=== PATIENT | female | born 1945 | race Caucasian/White ===

== ENCOUNTER 2017-02-28 20:29 | Emergency (ER) | payer OTHER ==
--- NOTE | 2017-02-28 22:33 | ED CLINICAL REPORT ---
Clinical Report - Physicians/Mid Levels [facility] [address] [place] [address] 02/28/2017 20:30 Patient: SHAYNE LOOMIS Time Seen: 21:04 Feb 28 2017. Arrived- By private vehicle. Historian- patient and family. HISTORY OF PRESENT ILLNESS Chief Complaint: BACK PAIN. The quality is noted to be "pain" and similar to prior episodes. It is described as being in the area of the lower thoracic spine. Onset was yesterday and it is still present. No bladder dysfunction, bowel dysfunction or sensory loss. Additional history - Low back pain with movement, especially movement from sitting to standing. Improves with rest, and ambulation. Took two vicodin prior to arrival, with improvement of sx. Patient denies any saddle anesthesia, urinary incontinence. Denies any urgency or frequency. Denies any fevers. Denies radiation of pain. Reports similar history of pain, with chronic low back pain, likely exacerbated, as patient is recently cleaning and moving. REVIEW OF SYSTEMS No fever, chills, cough, difficulty breathing or nausea. All systems otherwise negative, except as recorded above. PAST HISTORY The patient has had prior back pain. Problems: Chrinic back pain with herniated disc. Anxiety Reaction. GERD. Depression. Additional Surgeries: Cataract Surgery. Medications: vicodin 2 tabs prn at 1800. Thyroid Hormone 60mcg , daily. Alprazolam 1 mg, 4x a day (1 tab every 4 hours PRN). Gabapentin Oral (Capsule 300 mg) 1 capsule. Vicodin Oral 7.5 mg, as needed. Allergies: NKDA. SOCIAL HISTORY Former smoker. Alcohol use. History of drug use. ADDITIONAL NOTES The nursing notes have been reviewed. PHYSICAL EXAM Vital Signs: 02/28/2017 20:35 BP: 132/58. HR: 77. RR: 18. O2 saturation: 92%. Temp: 98.3 F. Appearance: Alert. Eyes: Pupils equal, round and reactive to light. ENT: Ears normal. Neck: Normal inspection. Neck nontender. CVS: Normal heart rate and rhythm. Heart sounds normal. Respiratory: No respiratory distress. Breath sounds normal. No chest wall injury. Abdomen: Normal inspection. Soft. Bowel sounds normal. Back: Vertebral point tenderness over the lower lumbar spine. Soft tissue tenderness. Skin: Skin warm. Normal skin color. Neuro: Oriented X 3. Mood/affect normal. No weakness. No sensory deficit. PROGRESS AND PROCEDURES Course of Care: There are no risks for spinal epidural abscess or hematoma as patient is without any risk factors such as IVDA or evidence of active infection, no midline tenderness to percussion. Hence I do not feel emergent imaging with an MRI is indicated. However I did discuss with the patient that if these symptoms develop, or if the pain does not resolve an MRI may need to be done outpatient, or in the ED if symptoms worsen acutely or new onset of the above mentioned symptoms develop. NO distress. Pain reproduced with movement, in addition pt with signs of cystitis. Afebrile. NO cva tenderness. Patient with reproducible pain upon attempting to move from sitting to standing. Patient of this time with no history of IV drug use. Advanced age, with good distal sensation, as well as reflexes, history of chronic lumbar pain. No suspicion for any other acute processes beyond cystitis as treatment initiated. 02/28/2017 20:35 BP: 132/58. HR: 77. RR: 18. O2 saturation: 92%. Temp: 98.3 F. Patient is stable. Symptoms better. Patient/family counseled. Disposition: Discharged. CLINICAL IMPRESSION Chronic lumbar back pain. Cystitis. INSTRUCTIONS (you have signs of an infection, bladder infection ice your back take vicodin may take flexeril for further take pro-biotic). Your Current Medications: CONTINUE TAKING THE FOLLOWING MEDICATIONS: Alprazolam : 1 mg 4x a day, 1 tab every 4 hours PRN. Gabapentin Oral : Capsule 300 mg, 1 capsule. Thyroid Hormone* : 60mcg daily. vicodin 2 tabs prn at 1800*. Vicodin Oral : 7.5 mg, prn. Prescription Medications: Flexeril 10 mg: take 1 orally every 8 hours for 3 days. Dispense ten (10). No refills. Macrobid 100 mg: take 1 capsule orally every 12 hours for 7 days. No refill. Substitution is permissible. Follow-up: Follow up with your doctor Saturday. (Electronically signed by Sweta Delaney P.A.-C 02/28/2017 22:36)
--- NOTE | 2017-02-28 22:33 | ED ORDER SUMMARY ---
..... Patient: SHAYNE LOOMIS OrderSheet [facility] VisitID: [id number] [place] [address] 72y, F Registration Date/Time: 02/28/2017 ORDER SHEET Weight: 72.5 kg (estimated) Allergies: NKDA GENERAL ORDERS: UA-Culture if indicated Urgent (20:58 02/28/2017 EKoroleva P.A.-C) (Ack 21:06 Geovani) (21:58 Jory R.N.) MEDICATION ORDERS: Macrobid PO 100 mg (NOW) (21:58 02/28/2017 EKoroleva P.A.-C) (22:23 La Ortiz.Damion.) Flexeril PO 10 mg (NOW) (21:58 02/28/2017 EKoroleva P.A.-C) (Cancelled: Other22:09 EKoroleva P.A.-C) IV FLUIDS: ORDER SHEET NOTES: [Electronically signed by Sweta Delaney P.A.-C (22:36 02/28/2017)] [Electronically signed by Merissa Davis R.N. (22:48 02/28/2017)] [Electronically locked/signed by Merissa Davis R.N. (22:48 02/28/2017)]
--- NOTE | 2017-02-28 22:33 | ED NURSING NOTES ---
Clinical Report - Nurses [facility] [address] [place] [address] 02/28/2017 20:30 Patient: SHAYNE LOOMIS TRIAGE Triage time 2034. Acuity: LEVEL 4. Chief Complaint: BACK PAIN. --20:54 Leonora Grace R.N. 20:35 02/28/17. BP: 132/58. HR: 77. RR: 18. O2 saturation: 92% on room air. Temp: 98.3 F. --20:54 Leonora Grace R.N. Weight: 72.5 kg estimated. Height/Length: 63 inches Per Patient. BMI: 28.3. --20:51 Leonora Grace R.N. Medications Alprazolam 1 mg, 4x a day (1 tab every 4 hours PRN). Gabapentin Oral (Capsule 300 mg) 1 capsule. Vicodin Oral 7.5 mg, as needed. --20:50 Leoonra Grace R.N. Thyroid Hormone 60mcg , daily. --20:50 Leonora Grace R.N. vicodin 2 tabs prn at 1800. --20:51 Leonora Grace R.N. Allergies NKDA. --20:45 Leonora Grace R.N. History Arrived by private vehicle. Historian: patient. Accompanied by son. Primary physician (mike). This started yesterday. Onset. (gotton gradiually worse all day). No history of recent trauma. History of recent trauma- (possibly lifted something). ( has chronic back pain). SOCIAL HX: Former smoker (quit 30+ years ago, smoked for 3 years). Occasional alcohol use. History of drug use: marijuana. (per dr cadet). --20:54 Leonora Grace R.N. PROBLEMS: Chrinic back pain with herniated disc. Anxiety Reaction. GERD. Depression. --20:46 Leonora Grace R.N. ADDITIONAL SURGERIES: Cataract Surgery. --20:46 Leonora Grace R.N. Interventions ID band on patient. To treatment room. --20:54 Leonora Grace R.N. PHYSICAL ASSESSMENT 20:35. To room via wheelchair. Patient not gowned. GENERAL / NEURO / PSYCH: Alert. Oriented X 4. Appears in pain. ( PT SOMEWHAT GORGGY, SLOW TO RESPOND). RESPIRATORY: Chest nontender. CVS: Capillary refill less than 2 seconds. GI / : Abdomen soft. --20:56 Leonora Grace R.N. NURSING PROGRESS NOTES 20:35. Patient gowned. Head of bed elevated. Reassurance given. Patient identifiers checked. Call light placed in reach. Side rails up. Bed placed in lowest position. Patient ready for evaluation- chart flagged and notification provided. --20:55 Leonora Grace R.N. 21:45 Pt ambulated to bathroom with escort. stable but slow on feet. UA obtained and sent to lab. --21:58 Leonora Grace R.N. 22:05 02/28/17. Care transferred and report given (Merissa Fry, EDRN). --22:05 Leonora Grace R.N. 22:23 02/28/2017 Macrobid PO Capsules 100 mg given. Allergies verified and confirmed 5 rights. --22:23 Merissa Davis R.N. DISPOSITION / DISCHARGE Departure time: 2245. Condition at departure: improved and stable. No learning barriers present. Discharge instructions provided and reviewed with the patient. Reviewed medication(s) side effects, precautions, dosing and course information. Prescription(s) given to the patient. Patient verbalized understanding. Written instructions provided in [place]. The patient was discharged home and accompanied by neuroscientist. She left the Emergency Department ambulatory and via private vehicle. Family member driving. --22:48 Merissa Davis R.N. 22:30 02/28/17. BP: 103/63. HR: 63 (regular and normal rate). RR: 18 (regular and unlabored). O2 saturation: 99% on room air. Temp: deferred. Pain level now: 10/12. --22:48 Merissa Davis R.N. Locked/Released at 02/28/2017 22:48 by Merissa Davis R.N.
--- NOTE | 2017-02-28 22:33 | ED NURSING NOTES ---
Clinical Report - Nurses [facility] [address] [place] [address] 02/28/2017 20:30 Patient: SHAYNE LOOMIS TRIAGE Triage time 2034. Acuity: LEVEL 4. Chief Complaint: BACK PAIN. --20:54 Leonora Grace R.N. 20:35 02/28/17. BP: 132/58. HR: 77. RR: 18. O2 saturation: 92% on room air. Temp: 98.3 F. --20:54 Leonora Grace R.N. Weight: 72.5 kg estimated. Height/Length: 63 inches Per Patient. BMI: 28.3. --20:51 Leonora Grace R.N. Medications Alprazolam 1 mg, 4x a day (1 tab every 4 hours PRN). Gabapentin Oral (Capsule 300 mg) 1 capsule. Vicodin Oral 7.5 mg, as needed. --20:50 Leonora Grace R.N. Thyroid Hormone 60mcg , daily. --20:50 Leonora Grace R.N. vicodin 2 tabs prn at 1800. --20:51 Leonora Grace R.N. Allergies NKDA. --20:45 Leonora Grace R.N. History Arrived by private vehicle. Historian: patient. Accompanied by son. Primary physician (mike). This started yesterday. Onset. (gotton gradiually worse all day). No history of recent trauma. History of recent trauma- (possibly lifted something). ( has chronic back pain). SOCIAL HX: Former smoker (quit 30+ years ago, smoked for 3 years). Occasional alcohol use. History of drug use: marijuana. (per dr cadet). --20:54 Leonora Grace R.N. PROBLEMS: Chrinic back pain with herniated disc. Anxiety Reaction. GERD. Depression. --20:46 Leonora Grace R.N. ADDITIONAL SURGERIES: Cataract Surgery. --20:46 Leonora Grace R.N. Interventions ID band on patient. To treatment room. --20:54 Leonora Grace R.N. PHYSICAL ASSESSMENT 20:35. To room via wheelchair. Patient not gowned. GENERAL / NEURO / PSYCH: Alert. Oriented X 4. Appears in pain. ( PT SOMEWHAT GORGGY, SLOW TO RESPOND). RESPIRATORY: Chest nontender. CVS: Capillary refill less than 2 seconds. GI / : Abdomen soft. --20:56 Leonora Grace R.N. NURSING PROGRESS NOTES 20:35. Patient gowned. Head of bed elevated. Reassurance given. Patient identifiers checked. Call light placed in reach. Side rails up. Bed placed in lowest position. Patient ready for evaluation- chart flagged and notification provided. --20:55 Leonora Grace R.N. 21:45 Pt ambulated to bathroom with escort. stable but slow on feet. UA obtained and sent to lab. --21:58 Leonora Grace R.N. 22:05 02/28/17. Care transferred and report given (Merissa Fry, EDRN). --22:05 Leonora Grace R.N. 22:23 02/28/2017 Macrobid PO Capsules 100 mg given. Allergies verified and confirmed 5 rights. --22:23 Merissa Davis R.N. DISPOSITION / DISCHARGE Departure time: 2245. Condition at departure: improved and stable. No learning barriers present. Discharge instructions provided and reviewed with the patient. Reviewed medication(s) side effects, precautions, dosing and course information. Prescription(s) given to the patient. Patient verbalized understanding. Written instructions provided in Russian. The patient was discharged home and accompanied by gold prospector. She left the Emergency Department ambulatory and via private vehicle. Family member driving. --22:48 Merissa Davis R.N. 22:30 02/28/17. BP: 103/63. HR: 63 (regular and normal rate). RR: 18 (regular and unlabored). O2 saturation: 99% on room air. Temp: deferred. Pain level now: 10/12. --22:48 Merissa Davis R.N. Locked/Released at 02/28/2017 22:48 by Merissa Davis R.N.
--- NOTE | 2017-02-28 22:33 | ED ORDER SUMMARY ---
..... Patient: SHAYNE LOOMIS OrderSheet [facility] VisitID: [id number] [place] [address] 72y, F Registration Date/Time: 02/28/2017 ORDER SHEET Weight: 72.5 kg (estimated) Allergies: NKDA GENERAL ORDERS: UA-Culture if indicated Urgent (20:58 02/28/2017 EKoroleva P.A.-C) (Ack 21:06 Geovani) (21:58 Jory R.N.) MEDICATION ORDERS: Macrobid PO 100 mg (NOW) (21:58 02/28/2017 EKoroleva P.A.-C) (22:23 La Ortiz.Damion.) Flexeril PO 10 mg (NOW) (21:58 02/28/2017 EKoroleva P.A.-C) (Cancelled: Other22:09 EKoroleva P.A.-C) IV FLUIDS: ORDER SHEET NOTES: [Electronically signed by Sweta Delaney P.A.-C (22:36 02/28/2017)] [Electronically signed by Merissa Davis R.N. (22:48 02/28/2017)] [Electronically locked/signed by Merissa Davis R.N. (22:48 02/28/2017)]
--- NOTE | 2017-02-28 22:49 | ED MAR SUMMARY ---
..... Medication Administration Record [facility] [address] [place] [place] [address] Patient: SHAYNE LOOMIS Visit ID: [id number] 72y, F Weight: 72.5 kg Height/Length: 63 in BMI: 28.3 ALLERGIES: NKDA Given 22:23 02/28/2017 Merissa Davis RAlphonso Medication Administered: MACROBID [PO], Dose: 100 mg Capsules PO. Medication Ordered: Macrobid PO 100 mg (NOW).
--- NOTE | 2017-02-28 22:49 | ED DISCHARGE INSTRUCTIONS ---
Patient: SHAYNE LOOMIS General Instructions [facility] VisitID: [id number] [place] [address] 72y, F Registration Date/Time: 02/28/2017 Chronic lumbar back pain. Cystitis. INSTRUCTIONS (you have signs of an infection, bladder infection ice your back take vicodin may take flexeril for further take pro-biotic). Your Current Medications: CONTINUE TAKING THE FOLLOWING MEDICATIONS: Alprazolam : 1 mg 4x a day, 1 tab every 4 hours PRN. Gabapentin Oral : Capsule 300 mg, 1 capsule. Thyroid Hormone* : 60mcg daily. vicodin 2 tabs prn at 1800*. Vicodin Oral : 7.5 mg, prn. Prescription Medications: Flexeril 10 mg: take 1 orally every 8 hours for 3 days. Dispense ten (10). No refills. Macrobid 100 mg: take 1 capsule orally every 12 hours for 7 days. No refill. Substitution is permissible. Follow-up: Follow up with your doctor Saturday. ADDITIONAL INFORMATION Back Pain [Acute Or Chronic] Back pain is usually caused by an injury to the muscles or ligaments of the spine. Sometimes the disks that separate each bone in the spine may bulge and cause pain by pressing on a nearby nerve. Back pain may also appear after a sudden twisting/bending force (such as in a car accident), after a simple awkward movement, or lifting something heavy with poor body positioning. In either case, muscle spasm is often present and adds to the pain. Acute back pain usually gets better in one to two weeks. Back pain related to disk disease, arthritis in the spinal joints or spinal stenosis (narrowing of the spinal canal) can become chronic and last for months or years. Unless you had a physical injury (for example, a car accident or fall) X-rays are usually not ordered for the initial evaluation of back pain. If pain continues and does not respond to medical treatment, x-rays and other tests may be performed at a later time. Home Care: You may need to stay in bed the first few days. But, as soon as possible, begin sitting or walking to avoid problems with prolonged bed rest (muscle weakness, worsening back stiffness and pain, blood clots in the legs). When in bed, try to find a position of comfort. A firm mattress is best. Try lying flat on your back with pillows under your knees. You can also try lying on your side with your knees bent up towards your chest and a pillow between your knees. Avoid prolonged sitting. This puts more stress on the lower back than standing or walking. During the first two days after injury, apply an ICE PACK to the painful area for 20 minutes every 2-4 hours. This will reduce swelling and pain. HEAT (hot shower, hot bath or heating pad) works well for muscle spasm. You can start with ice, then switch to heat after two days. Some patients feel best alternating ice and heat treatments. Use the one method that feels the best to you. You may use acetaminophen (Tylenol) or ibuprofen (Motrin, Advil) to control pain, unless another pain medicine was prescribed. [NOTE: If you have chronic liver or kidney disease or ever had a stomach ulcer or GI bleeding, talk with your doctor before using these medicines.] Be aware of safe lifting methods and do not lift anything over 15 pounds until all the pain is gone. Follow Up with your doctor or this facility if your symptoms do not start to improve after one week. Physical therapy may be needed. [NOTE: If X-rays were taken, they will be reviewed by a radiologist. You will be notified of any new findings that may affect your care.] Get Prompt Medical Attention if any of the following occur: Pain becomes worse or spreads to your legs Weakness or numbness in one or both legs Loss of bowel or bladder control Numbness in the groin or genital area Back Spasm [No Trauma] Spasm of the back muscles can occur after a sudden forceful twisting or bending force (such as in a car accident), after a simple awkward movement, or after lifting something heavy with poor body positioning. In either case, muscle spasm is often present and adds to the pain.Sleeping in an awkward position or on a poor quality mattress can also cause this. Some persons respond to emotional stress by tensing the muscles of their back. The treatment described below will usually help the pain to go away in 5-7 days. Pain that continues may require further evaluation or other types of treatment such as physical therapy. Unless you had a physical injury (for example, a car accident or fall), x-rays are usually not ordered for the initial evaluation of back pain. If pain continues and does not respond to medical treatment, x-rays and other tests may be performed at a later time. Home Care: You may need to stay in bed the first few days. But, as soon as possible, begin sitting or walking to avoid problems with prolonged bed rest (muscle weakness, worsening back stiffness and pain, blood clots in the legs). When in bed, try to find a position of comfort. A firm mattress is best. Try lying flat on your back with pillows under your knees. You can also try lying on your side with your knees bent up toward your chest and a pillow between your knees. Avoid prolonged sitting. This puts more stress on the lower back than standing or walking. Some persons find relief with heat (hot shower, hot bath, or heating pad) and massage, while others prefer cold packs (crushed or cubed ice in a plastic bag, wrapped in a towel). Try both and use the method that feels best for 20 minutes several times a day. You may use acetaminophen (Tylenol) or ibuprofen (Motrin, Advil) to control pain, unless another pain medicine was prescribed. [NOTE: If you have chronic liver or kidney disease or ever had a stomach ulcer or GI bleeding, talk with your doctor before using these medicines.] Gentle stretching will help your back heal faster. Perform this simple routine 2-3 times a day until your back is feeling better. LOW BACK STRETCH Lie on your back with your knees bent and both feet on the ground. Slowly raise your left knee to your chest as you flatten your lower back against the floor. Hold for 5 seconds. Relax and repeat the exercise with your right knee. Do 10 of these exercises for each leg. Repeat, hugging both knees to your chest at the same time. Be aware of safe lifting methods and do not lift anything over 15 pounds until all the pain is gone. Follow Up with your doctor or this facility if your symptoms do not start to improve after one week. Physical therapy or further tests may be needed. [NOTE: If x-rays were taken, they will be reviewed by a radiologist. You will be notified of any new findings that may affect your care.] Return Promptly or contact your doctor if any of the following occurs: Pain becomes worse or spreads to your legs Weakness or numbness in one or both legs Loss of bowel or bladder control Numbness in the groin or genital area Unexplained fever over 100.4F (38.0C) Burning or pain when passing urine Bladder Infection,Female (Adult) A bladder infection ("cystitis" or "UTI") usually causes a constant urge to urinate and a burning when passing urine. Urine may be cloudy, smelly or dark. There may be pain in the lower abdomen. A bladder infection occurs when bacteria from the vaginal area enter the bladder opening (urethra). This can occur from sexual intercourse, wearing tight clothing, dehydration and other factors. Home Care: Drink lots of fluids (at least 6-8 glasses a day, unless you must restrict fluids for other medical reasons). This will force the medicine into your urinary system and flush the bacteria out of your body. Avoid sexual intercourse until your symptoms are gone. Avoid caffeine, alcohol and spicy foods. These can irritate the bladder. A bladder infection is treated with antibiotics. You may also be given Pyridium (generic = phenazopyridine) to reduce the burning sensation. This medicine will cause your urine to become a bright orange color. The orange urine may stain clothing. You may wear a pad or panty-liner to protect clothing. Preventing Future Infections: Always wipe from front to back after a bowel movement. Keep the genital area clean and dry. Drink plenty of fluids each day to avoid dehydration. Both sexual partners should wash before intercourse. Urinate right after intercourse to flush out the bladder. Wear cotton underwear and cotton-lined panty hose; avoid tight-fitting pants. If you are on control pills and are having frequent bladder infections, discuss with your doctor. Follow Up: Return to this facility or see your doctor if ALL symptoms are not gone after three days of treatment. Get Prompt Medical Attention if any of the following occur: Fever of 100.4F (38C) or higher, or as directed by your healthcare provider No improvement by the third day of treatment Increasing back or abdominal pain Repeated vomiting; unable to keep medicine down Weakness, dizziness or fainting Vaginal discharge Pain, redness or swelling in the labia (outer vaginal area) Cyclobenzaprine Hydrochloride Oral tablet What is this medicine? CYCLOBENZAPRINE (emma jolley) is a muscle relaxer. It is used to treat muscle pain, spasms, and stiffness. How should I use this medicine? Take this medicine by mouth with a glass of water. Follow the directions on the prescription label. If this medicine upsets your stomach, take it with food or milk. Take your medicine at regular intervals. Do not take it more often than directed. Talk to your mica miner blasting regarding the use of this medicine in children. Special care may be needed. What side effects may I notice from receiving this medicine? Side effects that you should report to your doctor or health healthcare network consultant as soon as possible: allergic reactions like skin rash, itching or hives, swelling of the face, lips, or tongue chest pain fast heartbeat hallucinations seizures vomiting Side effects that usually do not require medical attention (report to your doctor or health healthcare network consultant if they continue or are bothersome): headache What may interact with this medicine? Do not take this medicine with any of the following medications: cisapride droperidol flecainide grepafloxacin halofantrine levomethadyl MAOIs like Carbex, Eldepryl, Marplan, Nardil, and Parnate nilotinib pimozide probucol sertindole This medicine may also interact with the following medications: abarelix alcohol contrast dyes dolasetron guanethidine medicines for cancer medicines for depression, anxiety, or psychotic disturbances medicines to treat an irregular heartbeat medicines used for sleep or numbness during surgery or procedure methadone octreotide ondansetron palonosetron phenothiazines like chlorpromazine, mesoridazine, prochlorperazine, thioridazine some medicines for infection like alfuzosin, chloroquine, clarithromycin, levofloxacin, mefloquine, pentamidine, troleandomycin tramadol vardenafil What if I miss a dose? If you miss a dose, take it as soon as you can. If it is almost time for your next dose, take only that dose. Do not take double or extra doses. Where should I keep my medicine? Keep out of the reach of children. Store at room temperature between 15 and 30 degrees C (59 and 86 degrees F). Keep container tightly closed. Throw away any unused medicine after the expiration date. What should I tell my health care provider before I take this medicine? They need to know if you have any of these conditions: heart disease, irregular heartbeat, or previous heart attack liver disease thyroid problem an unusual or allergic reaction to cyclobenzaprine, tricyclic antidepressants, lactose, other medicines, foods, dyes, or preservatives or trying to get breast-feeding What should I watch for while using this medicine? Check with your doctor or health healthcare network consultant if your condition does not improve within 1 to 3 weeks. You may get drowsy or dizzy when you first start taking the medicine or change doses. Do not drive, use machinery, or do anything that may be dangerous until you know how the medicine affects you. Stand or sit up slowly. Your mouth may get dry. Drinking water, chewing sugarless gum, or sucking on hard candy may help. Nitrofurantoin, Nitrofurantoin, Macrocrystalline Oral capsule What is this medicine? NITROFURANTOIN (kem khoielle nestor SULMA toydavid) is an antibiotic. It is used to treat urinary tract infections. How should I use this medicine? Take this medicine by mouth with a glass of water. Follow the directions on the prescription label. Take this medicine with food or milk. Take your doses at regular intervals. Do not take your medicine more often than directed. Do not stop taking except on your doctor's advice. Talk to your mica miner blasting regarding the use of this medicine in children. While this drug may be prescribed for selected conditions, precautions do apply. What side effects may I notice from receiving this medicine? Side effects that you should report to your doctor or health healthcare network consultant as soon as possible: allergic reactions like skin rash or hives, swelling of the face, lips, or tongue chest pain cough difficulty breathing dizziness, drowsiness fever or infection joint aches or pains pale or blue-tinted skin redness, blistering, peeling or loosening of the skin, including inside the mouth tingling, burning, pain, or numbness in hands or feet unusual bleeding or bruising unusually weak or tired yellowing of eyes or skin Side effects that usually do not require medical attention (report to your doctor or health healthcare network consultant if they continue or are bothersome): dark urine diarrhea headache loss of appetite nausea or vomiting temporary hair loss What may interact with this medicine? antacids containing magnesium trisilicate probenecid quinolone antibiotics like ciprofloxacin, lomefloxacin, norfloxacin and ofloxacin sulfinpyrazone What if I miss a dose? If you miss a dose, take it as soon as you can. If it is almost time for your next dose, take only that dose. Do not take double or extra doses. Where should I keep my medicine? Keep out of the reach of children. Store at room temperature between 15 and 30 degrees C (59 and 86 degrees F). Protect from light. Throw away any unused medicine after the expiration date. What should I tell my health care provider before I take this medicine? They need to know if you have any of these conditions: anemia diabetes [id number] dehydrogenase deficiency kidney disease liver disease lung disease other chronic illness an unusual or allergic reaction to nitrofurantoin, other antibiotics, other medicines, foods, dyes or preservatives or trying to get breast-feeding What should I watch for while using this medicine? Tell your doctor or health healthcare network consultant if your symptoms do not improve or if you get new symptoms. Drink several glasses of water a day. If you are taking this medicine for a long time, visit your doctor for regular checks on your progress. If you are diabetic, you may get a false positive result for sugar in your urine with certain brands of urine tests. Check with your doctor. You have been given the following additional information: Back Pain (Acute Or Chronic) Back Spasm, No Trauma Bladder Infection, Female (Adult) Cyclobenzaprine Hydrochloride Oral tablet Nitrofurantoin, Nitrofurantoin, Macrocrystalline Oral capsule (Electronically signed by Sweta Delaney P.A.-C 02/28/2017 22:36)
--- NOTE | 2017-02-28 22:49 | ED MAR SUMMARY ---
..... Medication Administration Record [facility] [address] [place] [address] Patient: SHAYNE LOOMIS Visit ID: [id number] 72y, F Weight: 72.5 kg Height/Length: 63 in BMI: 28.3 ALLERGIES: NKDA Given 22:23 02/28/2017 Merissa Davis RAlphonso Medication Administered: MACROBID [PO], Dose: 100 mg Capsules PO. Medication Ordered: Macrobid PO 100 mg (NOW).
--- NOTE | 2017-02-28 22:49 | ED MED RECONCILIATION SUMMARY ---
Patient: SHAYNE LOOMIS Medication Reconciliation Report [facility] VisitID: [id number] [place] [address] 72y, F Registration Date/Time: 02/28/2017 Weight: 72.5 kg Height/Length: 63 in. BMI: 28.3 ALLERGIES: NKDA The patient's Home Medications are listed below: CONTINUE TAKING THE FOLLOWING MEDICATIONS: Alprazolam 1 mg, 4x a day, 1 tab every 4 hours PRN Gabapentin Oral (300 mg) 1 capsule Thyroid Hormone 60mcg , daily vicodin 2 tabs prn at 1800 Vicodin Oral 7.5 mg The source(s) of the original Home Medication information: Not obtained. The following Medications were given to the patient in the Emergency Department: Macrobid [PO] PO 100 mg, administered: 02/28/2017 10:23:00 PM The following Medications were prescribed to the patient: Flexeril 10 mg: take 1 orally every 8 hours for 3 days. Dispense ten (10). No refills. -- Sweta Delaney, P.A.-Yanique Macrobid 100 mg: take 1 capsule orally every 12 hours for 7 days. No refill. Substitution is permissible. -- Sweta Delaney, P.A.-C
--- NOTE | 2017-02-28 22:49 | ED MED RECONCILIATION SUMMARY ---
Patient: SHAYNE LOOMIS Medication Reconciliation Report [facility] VisitID: [id number] [place] [address] 72y, F Registration Date/Time: 02/28/2017 Weight: 72.5 kg Height/Length: 63 in. BMI: 28.3 ALLERGIES: NKDA The patient's Home Medications are listed below: CONTINUE TAKING THE FOLLOWING MEDICATIONS: Alprazolam 1 mg, 4x a day, 1 tab every 4 hours PRN Gabapentin Oral (300 mg) 1 capsule Thyroid Hormone 60mcg , daily vicodin 2 tabs prn at 1800 Vicodin Oral 7.5 mg The source(s) of the original Home Medication information: Not obtained. The following Medications were given to the patient in the Emergency Department: Macrobid [PO] PO 100 mg, administered: 02/28/2017 10:23:00 PM The following Medications were prescribed to the patient: Flexeril 10 mg: take 1 orally every 8 hours for 3 days. Dispense ten (10). No refills. -- Sweta Delaney, P.A.-Yanique Macrobid 100 mg: take 1 capsule orally every 12 hours for 7 days. No refill. Substitution is permissible. -- Sweta Delaney, P.A.-C
== END 2017-02-28 22:45 | disposition home or self-care (01) ==
LOC: ED SRH 20:29
DX: M54.5 Low back pain (principal); G89.29 Other chronic pain; N30.90 Cystitis, unspecified without hematuria; K21.9 Gastro-esophageal reflux disease without esophagitis; Z79.899 Other long term (current) drug therapy; Z87.891 Personal history of nicotine dependence
CPT/HCPCS: 90004; 90148; 90469

== ENCOUNTER 2017-03-18 07:52 | Emergency (ER) | payer OTHER ==
--- NOTE | 2017-03-18 10:27 | DIAGNOSTIC IMAGING REPORT ---
PROCEDURE: XR CHEST 1 VIEW INDICATION: VOMITING TECHNIQUE: Single AP upright view 08:50 hours COMPARISON: 08/01/2010 FINDINGS: The cardiomediastinal contour is normal. No central venous congestion. The pulmonary arteries are prominent. The lungs mildly hyperinflated, hyperlucent at the apices, and otherwise clear without focal consolidation, pleural effusion or pneumothorax. The osseous structures are intact. IMPRESSION: 1. Stable exam without acute disease. 2. Findings of mild COPD/emphysema.
--- NOTE | 2017-03-18 14:21 | ED CLINICAL REPORT ---
Clinical Report - Physicians/Mid Levels [facility] [address] [place] [address] 03/18/2017 7:54 Patient: SHAYNE LOOMIS Time Seen: 08:59 Mar 18 2017. Historian- patient. CPT: ER phys charges level 4 plus (#[id number]). EKG interpretation (#[id number]). HISTORY OF PRESENT ILLNESS Chief Complaint: VOMITING and DIARRHEA. Lethargy. This started about 2 days PRIVATE WEALTH ADVISOR; Onset. (2 days ago). ( Pt repots "I am not taking care of myself as I should. I am confused about my medications and when to take them."). and is still present. The patient has had nausea and mild vomiting. The vomiting has occurred only once. She has had moderate diarrhea. This has occurred several times. Has not recently been on antibiotics. No history of possible bad food exposure or known contact with a sick individual. The illness is described as moderate. Similar symptoms previously: None. Recent medical care: The patient was seen recently at this facility (12 days [employer]). Seen for other problems; back pain. Evaluation/treatment- Percocet was added to regimen. Diagnosis: (Compression fractures). ( taking too much thyroid medication.). REVIEW OF SYSTEMS No fever, muscle aches, difficulty with urination, dark urine or headache. No dizziness, sore throat, cough, chest pain or difficulty breathing. No excessive urination or skin rash. No falls or head injury. All systems otherwise negative, except as recorded above. PAST HISTORY Spinal Fracture. Hypothyroidism. Cystitis. Back Pain. Chrinic back pain with herniated disc. Anxiety Reaction. GERD. Depression. ADDITIONAL SURGERIES: Cataract Surgery. SOCIAL HISTORY Occasional alcohol use. History of drug use: marijuana. ADDITIONAL NOTES The nursing notes have been reviewed. PHYSICAL EXAM Vital Signs: 03/18/2017 08:11 BP: 135/70. HR: 65. RR: 18. O2 saturation: 97%. Temp: 98.1 F. Pain level now: 8/10. Appearance: Alert. No acute distress. Eyes: Pupils equal, round and reactive to light. Eyes normal inspection. ENT: Nose normal. Dry mucous membranes present. Neck: Normal inspection. Neck supple. No JVD. CVS: Normal heart rate and rhythm. Heart sounds normal. Pulses normal. Respiratory: No respiratory distress. Breath sounds normal. Abdomen: Soft. Mild tenderness in the periumbilical area. Bowel sounds normal. Back: Normal inspection. Skin: Skin warm. Normal skin color. No rash. Extremities: Extremities exhibit normal ROM. No lower extremity edema. Neuro: Oriented X 3. No motor deficit. No sensory deficit. LABS, X-RAYS, AND EKG EKG: No acute process. Chest X-ray: No acute disease. (Mild COPD.). Views: AP (portable). Technique: good. The X-rays were independently viewed by me and interpreted contemporaneously by me. Laboratory Tests: UA-Culture if indicated: (PARESH: 03/18/2017 08:29) ( [facility] 03/18/[place] 09:01) Final results Test Result Flag Units (Reference) URINE COLOR YELLOW URINE APPEARANCE CLEAR URINE GLUCOSE NEGATIVE (NEGATIVE) URINE BILIRUBIN NEGATIVE (NEGATIVE) URINE KETONE NEGATIVE (NEGATIVE) URINE SPECIFIC GRAVITY <= 1.005 L (1.010-1.030) URINE PH 6.0 (5.0-8.0) URINE PROTEIN NEGATIVE (NEGATIVE) URINE UROBILINOGEN 0.2 EU/dL (0.2-1.0) URINE NITRITE NEGATIVE (NEGATIVE) URINE BLOOD 1+ (NEGATIVE) URINE LEUK ESTERASE POSITIVE (NEGATIVE) URINE RBC RARE rbc/hpf (0-1) URINE WBC 5-10 wbc/hpf (0-1) URINE EPITHELIAL CELLS 1-3 EPI/hpf (0-5) URINE BACTERIA TRACE (<1+) (NONE SEEN) URINE COMMENT CULTURE INDICATED URINE CULTURES ARE SET-UP BASED ON THE FOLLOWING CRITERIA:POSITIVE NITRITEPOSITIVE LEUKOCYTE ESTERASEGREATER THAN 10 WHITE BLOOD CELLSMODERATE (2+) OR GREATER BACTERIA CBC w Diff: (PARESH: 03/18/2017 08:19) ( [facility] 03/18/2017 09:02) Final results Test Result Flag Units (Reference) WHITE BLOOD COUNT 8.6 K/uL (4.5-11.5) RED BLOOD COUNT 4.29 M/uL (4.00-5.20) HEMOGLOBIN 12.6 gm/dL (12.0-16.0) HEMATOCRIT 38.4 % (36.0-46.0) MEAN CELL VOLUME 89 fL (80-100) MEAN CORPUSCULAR HGB 29 pg (26-34) MEAN CORPUSCULAR HGB CONC 33 g/dL (31-37) RED CELL DISTRIBUTION WIDTH 13.9 % (11.6-14.8) PLATELET COUNT 368 K/uL (150-400) NEUTROPHIL % 65.0 % (50-75) LYMPH % 25.6 % (25-40) MONO % 6.7 % (3-14) EOSINOPHIL % 2.5 % (0-4) BASOPHIL % 0.2 % (0-2) Urine Drug Screen: (PARESH: 03/18/2017 08:29) ( [facility] 03/18/2017 09:07) Final results Test Result Flag Units (Reference) AMPHETAMINE/METHAMPHETAMINE NEGATIVE (NEGATIVE) BARBITURATE NEGATIVE (NEGATIVE) BENZODIAZEPINE POSITIVE H (NEGATIVE) CANNABINOID NEGATIVE (NEGATIVE) COCAINE NEGATIVE (NEGATIVE) ECSTASY NEGATIVE (NEGATIVE) METHADONE NEGATIVE (NEGATIVE) OPIATE POSITIVE H (NEGATIVE) The urine drug screen is a qualitative screening test fordrug overdose and abuse. All screen results should beconsidered as presumptive.Drugs screened for are as follows:BenzodiazepinesCocaineAmphetamines/MetamphetaminesTHC (Tetrahydrocannabinol)OpiatesBarbituratesEcstasyMethadonePositive results are unconfirmed. For confirmation, notifythe lab for the specimen to be sent to the reference lab.All confirmations must be performed by a differentmethodology.The ingestion of natural herbal and plant productscontaining Ephedra/Ephedra metabolites can produce in urineone or more substances capable of cross reacting withamphetamine/methamphetamine immunoassays. These testsprovide a preliminary result only. A more specificalternative chemical method must be used to obtain aconfirmed analytical result. BNP: (PARESH: 03/18/2017 08:19) ( MsgRcvd 03/18/2017 09:11) Final results Test Result Flag Units (Reference) B-TYPE NATRIURETIC PEPTIDE 38.1 pg/ml (5-100) CMP: (PARESH: 03/18/2017 08:19) ( MsgRcvd 03/18/2017 08:54) Final results Test Result Flag Units (Reference) GLUCOSE 113 H mg/dL (70-110) BUN 13 mg/dL (7-18) CREATININE 0.7 mg/dL (0.6-1.3) Estimated GFR >60 mL/min Estimated GFR- >60 mL/min Note: Persistent reduction over 3 months in eGFR<60 mL/min/1.73 m2 defines CKD. Patients with eGFR values>=60 mL/min/1.73 m2 may also have CKD if evidence ofpersistent proteinuria. Additional information may be foundat www.kidney.org. SODIUM 142 mmol/L (136-145) POTASSIUM 4.2 mmol/L (3.5-5.1) CHLORIDE 106 mmol/L (98-107) CARBON DIOXIDE 29 mmol/L (21-32) CALCIUM 8.8 mg/dL (8.5-10.1) TOTAL PROTEIN 6.5 g/dL (6.4-8.2) ALBUMIN 3.6 g/dL (3.3-5.0) BILIRUBIN, TOTAL 0.2 mg/dL (0.0-1.0) ALKALINE PHOSPHATASE 435 H U/L (46-116) AST (SGOT) 19 U/L (15-37) ALT (SGPT) 33 U/L (12-78) LIPASE 192 U/L (73-393) AMYLASE 30 U/L (25-115) CPK 36 U/L (24-260) TROPONIN I <0.05 L ng/mL (0.00-1.5) TROPONIN REFERENCE RANGE:<0.1 NEGATIVE0.1-1.5 INDETERMINANT>1.5 POSITIVE . PROGRESS AND PROCEDURES Course of Care: IV NS Zofran 4 mg IV 12:56 03/18/17. Pt observed to see if what appears to be intoxication, wears off with time. Pt still has dysarthria and wants to go home. She states she hits the help button several times and no one has come in. I checked with the [facility] and she notes only 1 call from that room and the [facility] responded by going in and taking the patient to the BR. Pt states she wants to go home and take her medications. I spoke with the Son Yash, and he states he gives her meds as written on the bottles but she is groggy all the time. He is not sure if she is taking more herself, when he is at work. Pt appears to need a drug holiday. Willm discuss with Dr. Mariano. Pt pulled her IV out . 13:21 03/18/17. Discussed with Dr Mariano and he will fax over a new medication regime to go home with today. 14:24 03/18/17. Pt eloped before Dr Mariano could get new medication schedule faxed to us. I was able to catch her and the Son in the parking lot and give him instructions on the medication changes. Pt will stop alprazolam, reduce clonazepam and vicodin. The Son will lock up bottles so she cannot get more when he is at work. She has an appointment with Dr Mariano in 4 days on Saturday. Patient/family counseled. Disposition: Discharged. Condition: stable and improved. CLINICAL IMPRESSION Acute norovirus gastroenteritis. Acute urinary tract infection with cystitis. Iatrogenic drug overdose with sedative medications. INSTRUCTIONS (Keep all medications away from patient to avoid mistakenly taking them. Follow new medication regime outlines by Dr Mariano.). Warnings: Further evaluation is necessary. GENERAL WARNINGS: Return or contact your physician immediately if your condition worsens or changes unexpectedly, if not improving as expected, or if other problems arise. Prescription Medications: Zofran (orally disintegrating tablets) 4 mg: take 1 orally every 6 hours as needed for nausea. Dispense ten (10). No refill. Macrobid 100 mg: take 1 capsule orally every 12 hours for 3 days. No refill. Substitution is permissible. Understanding of the discharge instructions verbalized by patient and family. Discharge instructions reviewed (Son, Yash). Follow-up with: Yash Mariano MD, Family Practice, , [facility], [address] [place] [address], [facility] Follow up in three days. Call for an appointment. (Electronically signed by Bright Rojas MD 03/19/2017 21:22)
--- NOTE | 2017-03-18 14:21 | ED ORDER SUMMARY ---
..... Patient: SHAYNE LOOMIS OrderSheet [facility] VisitID: [id number] [address] [place] [address] 72y, F Registration Date/Time: 03/18/2017 ORDER SHEET Weight: 58.9 kg (stated) Allergies: NKDA GENERAL ORDERS: Chest 1V Urgent (08:03/18/2017 Cindy GUSMAN) (Ack 8:33 Caroline) (8:46 MWinterer R.N.) Transformer Assembler (Continuous) (:03/18/2017 Cindy GUSMAN) (Ack 8:33 Caroline) (8:46 MWinterer R.N.) Blood Culture (No) (N/A) Urgent (03/18/2017 Cindy GUSMAN) (Ack 8:33 Caroline) (8:37 MWleland GUSMAN) (Cancelled: Other8:37 Cindy GUSMAN) CBC w Diff Urgent (:03/18/2017 Cindy GUSMAN) (Ack 8:33 Caroline) (8:36 MWinterer R.N.) CMP Urgent (:03/18/2017 Cindy GUSMAN) (Ack 8:33 Caroline) (8:36 MWinterer R.N.) UA-Culture if indicated Urgent (:03/18/2017 Cindy GUSMAN) (Ack 8:33 Caroline) (8:41 MWinterer R.N.) Amylase Urgent (:03/18/2017 Cindy GUSMAN) (Ack 8:33 Caroline) (8:36 MWinterer R.N.) Lipase Urgent (:03/18/2017 Cindy GUSMAN) (Ack 8:33 Caroline) (8:36 MWinterer R.N.) CPK Urgent (:03/18/2017 Cindy GUSMAN) (Ack 8:33 Caroline) (8:36 MWinterer R.N.) Troponin-I Urgent (:03/18/2017 Cindy GUSMAN) (Ack 8:33 Caroline) (8:37 MWinterer R.N.) BNP Urgent (:03/18/2017 Cindy GUSMAN) (Ack 8:33 Caroline) (8:37 MWinterer R.N.) Lactate, Serum Urgent (08:03/18/2017 Cindy GUSMAN) (Ack 8:33 Caroline) (8:37 Cindy GUSMAN) (Cancelled: Other8:37 Cindy GUSMAN) Oxygen (2 L/min) (NC) (08:03/18/2017 Cindy GUSMAN) (Ack 8:33 Caroline) (8:46 MWinterer R.N.) Pulse oximeter (08:03/18/2017 Cindy GUSMAN) (Ack 8:33 Caroline) (8:46 MWinterer R.N.) EKG - ER Stat (:03/18/2017 Cindy GUSMAN) (Ack 8:33 Caroline) (8:41 MWinterer R.N.) Urine Drug Screen Urgent (:03/18/2017 Cindy GUSMAN) (Ack 8:34 Caroline) (8:41 MWinterer R.N.) - (500 cc bolus of NS.) (09:03/18/2017 Diann GUSMAN) (9:17 MWinterer R.N.) Culture, Stool Urgent (:03/18/2017 Diann GUSMAN) (Ack 9:19 Caroline) (11:36 MWinterer R.N.) MEDICATION ORDERS: IV FLUIDS: IV Saline Lock (08:03/18/2017 KWilliams R.N. per protocol) (8:25 KWilliams R.N.) IV NS : initial bolus none -, then 150 mL/hr for 4h (NOW); Urgent (08:03/18/2017 Cindy GUSMAN) (Ack 8:31 MWinterer R.N.) (8:41 MWinterer R.N.) Zofran IV 4 mg (NOW) (09:03/18/2017 Diann GUSMAN) (Ack 9:17 MWinterer R.N.) (9:26 MWinterer R.N.) ORDER SHEET NOTES: [Electronically signed by Nanette Hodges R.N. (14:03/19/2017)] [Electronically signed by Bright Rojas MD (21:22 03/19/2017)] [Electronically locked/signed by Nanette Hodges R.N. (:03/19/2017)]
--- NOTE | 2017-03-18 14:21 | ED ORDER SUMMARY ---
..... Patient: SHAYNE LOOMIS OrderSheet [facility] VisitID: [id number] [address] [place] [address] 72y, F Registration Date/Time: 03/18/2017 ORDER SHEET Weight: 58.9 kg (stated) Allergies: NKDA GENERAL ORDERS: Chest 1V Urgent (08:03/18/2017 Cindy GUSMAN) (Ack 8:33 Caroline) (8:46 MWinterer R.N.) Panel Lay Up Worker (Continuous) (:03/18/2017 Cindy GUSMAN) (Ack 8:33 Caroline) (8:46 MWinterer R.N.) Blood Culture (No) (N/A) Urgent (03/18/2017 Cindy GUSMAN) (Ack 8:33 Caroline) (8:37 MWleland GUSMAN) (Cancelled: Other8:37 Cindy GUSMAN) CBC w Diff Urgent (:03/18/2017 Cindy GUSMAN) (Ack 8:33 Caroline) (8:36 MWinterer R.N.) CMP Urgent (:03/18/2017 Cindy GUSMAN) (Ack 8:33 Caroline) (8:36 MWinterer R.N.) UA-Culture if indicated Urgent (:03/18/2017 Cindy GUSMAN) (Ack 8:33 Caroline) (8:41 MWinterer R.N.) Amylase Urgent (:03/18/2017 Cindy GUSMAN) (Ack 8:33 Caroline) (8:36 MWinterer R.N.) Lipase Urgent (:03/18/2017 Cindy GUSMAN) (Ack 8:33 Caroline) (8:36 MWinterer R.N.) CPK Urgent (:03/18/2017 Cindy GUSMAN) (Ack 8:33 Caroline) (8:36 MWinterer R.N.) Troponin-I Urgent (:03/18/2017 Cindy GUSMAN) (Ack 8:33 Caroline) (8:37 MWinterer R.N.) BNP Urgent (:03/18/2017 Cindy GUSMAN) (Ack 8:33 Caroline) (8:37 MWinterer R.N.) Lactate, Serum Urgent (08:03/18/2017 Cindy GUSMAN) (Ack 8:33 Caroline) (8:37 Cindy GUSMAN) (Cancelled: Other8:37 Cindy GUSMAN) Oxygen (2 L/min) (NC) (08:03/18/2017 Cindy GUSMAN) (Ack 8:33 Caroline) (8:46 MWinterer R.N.) Pulse oximeter (08:03/18/2017 Cindy GUSMAN) (Ack 8:33 Caroline) (8:46 MWinterer R.N.) EKG - ER Stat (:03/18/2017 Cindy GUSMAN) (Ack 8:33 Caroline) (8:41 MWinterer R.N.) Urine Drug Screen Urgent (:03/18/2017 Cindy GUSMAN) (Ack 8:34 Caroline) (8:41 MWinterer R.N.) - (500 cc bolus of NS.) (09:03/18/2017 Diann GUSMAN) (9:17 MWinterer R.N.) Culture, Stool Urgent (:03/18/2017 Diann GUSMAN) (Ack 9:19 Caroline) (11:36 MWinterer R.N.) MEDICATION ORDERS: IV FLUIDS: IV Saline Lock (08:03/18/2017 KWilliams R.N. per protocol) (8:25 KWilliams R.N.) IV NS : initial bolus none -, then 150 mL/hr for 4h (NOW); Urgent (08:03/18/2017 Cindy GUSMAN) (Ack 8:31 MWinterer R.N.) (8:41 MWinterer R.N.) Zofran IV 4 mg (NOW) (09:03/18/2017 Diann GUSMAN) (Ack 9:17 MWinterer R.N.) (9:26 MWinterer R.N.) ORDER SHEET NOTES: [Electronically signed by Nanette Hodges R.N. (14:03/19/2017)] [Electronically signed by Bright Rojas MD (21:22 03/19/2017)] [Electronically locked/signed by Nanette Hodges R.N. (:03/19/2017)]
--- NOTE | 2017-03-18 14:21 | ED NURSING NOTES ---
Clinical Report - Nurses [facility] [address] [place] [address] 03/18/2017 7:54 Patient: SHAYNE LOOMIS TRIAGE Acuity: LEVEL 3. Chief Complaint: NAUSEA, VOMITING and DIARRHEA. Alert. No acute distress. SEPSIS SCREEN: Sepsis Screen. Negative (no infection suspected/documented). --08:20 Nanette Hodges R.N. 08:11 03/18/17. BP: 135/70. HR: 65. RR: 18. O2 saturation: 97% on room air. Temp: 98.1 F (oral). Pain level now: 04/11. --08:20 Nanette Hodges R.N. Weight: 58.9 kg stated. Height/Length: 68 inches Per Patient. BMI: 19.7. --08:14 Naentte Hodges R.N. Medications Alprazolam 1 mg, 4x a day (1 tab every 4 hours PRN). Gabapentin Oral (Capsule 300 mg) 1 capsule. Vicodin Oral 7.5 mg, as needed. --08:16 Nanette Hodges R.N. Dexilant Oral. --08:16 Nanette Hodges R.N. ClonazePAM Oral. --08:16 Nanette Hodges R.N. Desvenlafaxine Succinate Oral. --08:17 Nanette Hodges R.N. Losartan Potassium Oral. --08:17 Nanette Hodges R.N. Atenolol Oral. --08:17 Nanette Hodges R.N. HydrOXYzine HCl Oral. --08:17 Nanette Hodges R.N. Medication/allergy information source: the patient. --08:20 Nanette Hodges R.N. Allergies NKDA. --08:17 Nanette Hodges R.N. History Arrived by private vehicle. Historian: son and patient. Accompanied by son. Primary physician (García). Onset. (2 days ago). ( Pt repots "I am not taking care of myself as I should. I am confused about my medications and when to take them."). Treatment PRESSURE CONTROLLER: None. PAST MEDICAL HX: The patient is post-menopausal. SOCIAL HX: Smoker- current status unknown. Occasional alcohol use. History of occasional drug use: marijuana. NUTRITIONAL RISK ASSESSMENT: The nutritional risk assessment revealed no deficiencies. FUNCTIONAL ASSESSMENT: Functional assessment: no impairments noted. LEARNING NEEDS ASSESSMENT: The learning needs assessment revealed no barriers. FALL RISK ASSESSMENT: Fall risk assessment completed. Risk factors identified include patient age greater than 65 years. Fall interventions initiated. Patient placed on stretcher. Side rails up x1. Bed in low position. Patient visible from nurses' station. Call light in reach. SKIN INTEGRITY ASSESSMENT: Skin integrity risk assessment completed. No skin integrity risk identified. --08:20 Nanette Hodges R.N. The patient has had vomiting. The vomiting has occurred only once. She has had diarrhea. This has occurred several times. --08:22 Nanette Hodges R.N. PROBLEMS: Spinal Fracture. Hypothyroidism. Cystitis. Back Pain. Chrinic back pain with herniated disc. Anxiety Reaction. GERD. Depression. --08:18 Nanette Hodges R.N. ADDITIONAL SURGERIES: Cataract Surgery. --08:18 Nanette Hodges R.N. Assessment GENERAL / NEURO / PSYCH: Alert. Oriented X 4. Appears in no acute distress. Purvis Coma Scale: 15- eyes open spontaneously (4); best verbal response- oriented x 4 (5); best motor response- obeys commands (6). Patient appears calm and cooperative. RESPIRATORY: Respirations not labored. CVS: Capillary refill less than 2 seconds. GI / : Abdomen soft. SKIN: Mucous membranes are pink. Skin is warm and dry. --08:20 Nanette Hodges R.N. Interventions ID band on patient. To treatment room. --08:20 Nanette Hodges R.N. PHYSICAL ASSESSMENT 08:21 03/18/17. To room via wheelchair. Patient gowned. GENERAL / NEURO / PSYCH: Alert. Oriented X 4. Appears in no acute distress. HEENT: Mucous membranes are pink. RESPIRATORY: Respirations not labored. CVS: Capillary refill less than 2 seconds. GI / : Abdomen soft and nontender. SKIN: Skin is warm and dry. --08:21 Nanette Hodges R.N. NURSING PROGRESS NOTES 08:21 03/18/2017 Site #1 started via IV in the right antecubital space with an 20g angiocath, with aseptic technique and good blood return; one attempt. Blood drawn: rainbow set. Labeled in the presence of the patient and sent to the lab. Saline lock flushed with 10 mL saline. --08:21 Nanette Hodges R.N. 08:21 03/18/17. Patient gowned. Head of bed elevated. Reassurance given. Two patient identifiers checked. Call light placed in reach. Side rails up x 1. Bed placed in lowest position. Brakes of bed on. Patient ready for evaluation- chart flagged and ED physician notified. --08:21 Nanette Hodges R.N. 08:41 03/18/2017 Started bag #1 1000 mL IV Fluids IV NS (Saline); at 150 mL/hr over 4 hour(s) via site #1 via IV pump. Allergies verified and confirmed 5 rights. IV patency established. IV site checked: no pain, redness, or swelling. IV flushed thoroughly pre- and post-medication administration. --08:41 Nanette Hodges R.N. 08:50 03/18/17. BP: 121/62. HR: 58. RR: 16. O2 saturation: 100% on room air. --08:51 Nanette Hodges R.N. 08:51 03/18/17. Oxygen administered by nasal cannula at 2 liters. information consultant, pulse oximeter and NIBP monitor placed on patient; preventive maintenance engineer- Lead II; monitor alarms on. --08:51 Nanette Hodges R.N. EKG time: (0842). EKG was ordered, performed by a tech and shown to the ED physician. --09:09 Lissa Hernandez ER Tech1 09:26 03/18/2017 Zofran (Ondansetron HCl) IVP 4 mg given over 1 minute(s) via site #1. Allergies verified and confirmed 5 rights. IV patency established. IV site checked: no pain, redness, or swelling. IV flushed thoroughly pre- and post-medication administration. IVP given by RN. --09:26 Nanette Hodges R.N. 09:26 03/18/2017 IV Fluids IV NS via IV site #1 Rate Changed: bag #1 999 mL/hr via IV pump. IV patency established. IV site checked: no pain, redness, or swelling. IV flushed thoroughly. Confirmed 5 Rights. --09: Nanette Hodges R.N. 10:03/18/17. ( Pt ambulated to BR.). --10:25 Nanette Hodges R.N. 10:32 03/18/17. ( Pt states she could not provide stool sample.). --10:32 Nanette Hodges R.N. 10:32 03/18/17. BP: 125/42. HR: 62. RR: 18. O2 saturation: 99% on room air. --10:35 Nanette Hodges R.N. 11:36 03/18/17. ( Pt provided small, hard formed stool sample. Sample sent to lab.). --11:36 Nanette Hodges R.N. 12:15 03/18/17. The patient is sleeping. --12:15 Nanette Hodges R.N. 12:42 03/18/2017 Site #1 removed. Catheter intact. Manual pressure and bandage applied (pt pulled out her own IV). --12:42 Nanette Hodges R.N. 12:42 03/18/17. ( Pt pulled out her IV. Pt stating she wants to go home and she wants her son called. This RN explained to pt that I would talk to ED MD about discharge and call her son Yash. Pt agrees to wait.). --12:42 Nanette Hodges R.N. DISPOSITION / DISCHARGE 14:37 03/18/17. Departure time: 1430. Condition at departure: unchanged and stable. ( pt left ED with son prior to discharge papers and instructions. Pt tracked down when exiting hospital with son and encouraged to return to ED for discharge. Pt refuses, unable to obtain d/c vitals. Dr Rojas and this RN out to vehicle and Dr Rojas verbally delivered discharge instructions and written changes to her home medications. Son verbalizes understanding of medication changes and need to lock medications while he is away. States they are following up with Dr mckeon and have appt scheduled for saturday.). The patient left prior to discharge education being provided. The patient was discharged by the physician. She was discharged home and accompanied by family. She left the Emergency Department ambulatory and via private vehicle. Driving (son). --14:37 Sajan Hernandez R.N. Locked/Released at 03/19/2017 14:20 by Nanette Hodges R.N.
--- NOTE | 2017-03-18 14:21 | ED CLINICAL REPORT ---
Clinical Report - Physicians/Mid Levels [facility] [address] [place] [address] 03/18/2017 7:54 Patient: SHAYNE LOOMIS Time Seen: 08:59 Mar 18 2017. Historian- patient. CPT: ER phys charges level 4 plus (#[id number]). EKG interpretation (#[id number]). HISTORY OF PRESENT ILLNESS Chief Complaint: VOMITING and DIARRHEA. Lethargy. 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 (2 days ago). ( Pt repots "I am not taking care of myself as I should. I am confused about my medications and when to take them."). and is still present. The patient has had nausea and mild vomiting. The vomiting has occurred only once. She has had moderate diarrhea. This has occurred several times. Has not recently been on antibiotics. No history of possible bad food exposure or known contact with a sick individual. The illness is described as moderate. Similar symptoms previously: None. Recent medical care: The patient was seen recently at this facility (12 days STRATEGIC SOURCING SPECIALIST). Seen for other problems; back pain. Evaluation/treatment- Percocet was added to regimen. Diagnosis: (Compression fractures). ( taking too much thyroid medication.). REVIEW OF SYSTEMS No fever, muscle aches, difficulty with urination, dark urine or headache. No dizziness, sore throat, cough, chest pain or difficulty breathing. No excessive urination or skin rash. No falls or head injury. All systems otherwise negative, except as recorded above. PAST HISTORY Spinal Fracture. Hypothyroidism. Cystitis. Back Pain. Chrinic back pain with herniated disc. Anxiety Reaction. GERD. Depression. ADDITIONAL SURGERIES: Cataract Surgery. SOCIAL HISTORY Occasional alcohol use. History of drug use: marijuana. ADDITIONAL NOTES The nursing notes have been reviewed. PHYSICAL EXAM Vital Signs: 03/18/2017 08:11 BP: 135/70. HR: 65. RR: 18. O2 saturation: 97%. Temp: 98.1 F. Pain level now: 8/10. Appearance: Alert. No acute distress. Eyes: Pupils equal, round and reactive to light. Eyes normal inspection. ENT: Nose normal. Dry mucous membranes present. Neck: Normal inspection. Neck supple. No JVD. CVS: Normal heart rate and rhythm. Heart sounds normal. Pulses normal. Respiratory: No respiratory distress. Breath sounds normal. Abdomen: Soft. Mild tenderness in the periumbilical area. Bowel sounds normal. Back: Normal inspection. Skin: Skin warm. Normal skin color. No rash. Extremities: Extremities exhibit normal ROM. No lower extremity edema. Neuro: Oriented X 3. No motor deficit. No sensory deficit. LABS, X-RAYS, AND EKG EKG: No acute process. Chest X-ray: No acute disease. (Mild COPD.). Views: AP (portable). Technique: good. The X-rays were independently viewed by me and interpreted contemporaneously by me. Laboratory Tests: UA-Culture if indicated: (PARESH: 03/18/2017 08:29) ( [facility] 03/18/2017 09:01) Final results Test Result Flag Units (Reference) URINE COLOR YELLOW URINE APPEARANCE CLEAR URINE GLUCOSE NEGATIVE (NEGATIVE) URINE BILIRUBIN NEGATIVE (NEGATIVE) URINE KETONE NEGATIVE (NEGATIVE) URINE SPECIFIC GRAVITY <= 1.005 L (1.010-1.030) URINE PH 6.0 (5.0-8.0) URINE PROTEIN NEGATIVE (NEGATIVE) URINE UROBILINOGEN 0.2 EU/dL (0.2-1.0) URINE NITRITE NEGATIVE (NEGATIVE) URINE BLOOD 1+ (NEGATIVE) URINE LEUK ESTERASE POSITIVE (NEGATIVE) URINE RBC RARE rbc/hpf (0-1) URINE WBC 5-10 wbc/hpf (0-1) URINE EPITHELIAL CELLS 1-3 EPI/hpf (0-5) URINE BACTERIA TRACE (<1+) (NONE SEEN) URINE COMMENT CULTURE INDICATED URINE CULTURES ARE SET-UP BASED ON THE FOLLOWING CRITERIA:POSITIVE NITRITEPOSITIVE LEUKOCYTE ESTERASEGREATER THAN 10 WHITE BLOOD CELLSMODERATE (2+) OR GREATER BACTERIA CBC w Diff: (PARESH: 03/18/2017 08:19) ( [facility] 03/18/2017 09:02) Final results Test Result Flag Units (Reference) WHITE BLOOD COUNT 8.6 K/uL (4.5-11.5) RED BLOOD COUNT 4.29 M/uL (4.00-5.20) HEMOGLOBIN 12.6 gm/dL (12.0-16.0) HEMATOCRIT 38.4 % (36.0-46.0) MEAN CELL VOLUME 89 fL (80-100) MEAN CORPUSCULAR HGB 29 pg (26-34) MEAN CORPUSCULAR HGB CONC 33 g/dL (31-37) RED CELL DISTRIBUTION WIDTH 13.9 % (11.6-14.8) PLATELET COUNT 368 K/uL (150-400) NEUTROPHIL % 65.0 % (50-75) LYMPH % 25.6 % (25-40) MONO % 6.7 % (3-14) EOSINOPHIL % 2.5 % (0-4) BASOPHIL % 0.2 % (0-2) Urine Drug Screen: (PARESH: 03/18/2017 08:29) ( [facility] 03/18/2017 09:07) Final results Test Result Flag Units (Reference) AMPHETAMINE/METHAMPHETAMINE NEGATIVE (NEGATIVE) BARBITURATE NEGATIVE (NEGATIVE) BENZODIAZEPINE POSITIVE H (NEGATIVE) CANNABINOID NEGATIVE (NEGATIVE) COCAINE NEGATIVE (NEGATIVE) ECSTASY NEGATIVE (NEGATIVE) METHADONE NEGATIVE (NEGATIVE) OPIATE POSITIVE H (NEGATIVE) The urine drug screen is a qualitative screening test fordrug overdose and abuse. All screen results should beconsidered as presumptive.Drugs screened for are as follows:BenzodiazepinesCocaineAmphetamines/MetamphetaminesTHC (Tetrahydrocannabinol)OpiatesBarbituratesEcstasyMethadonePositive results are unconfirmed. For confirmation, notifythe lab for the specimen to be sent to the reference lab.All confirmations must be performed by a differentmethodology.The ingestion of natural herbal and plant productscontaining Ephedra/Ephedra metabolites can produce in urineone or more substances capable of cross reacting withamphetamine/methamphetamine immunoassays. These testsprovide a preliminary result only. A more specificalternative chemical method must be used to obtain aconfirmed analytical result. BNP: (PARESH: 03/18/2017 08:19) ( Msg[facility]cvd 03/18/2017 09:11) Final results Test Result Flag Units (Reference) B-TYPE NATRIURETIC PEPTIDE 38.1 pg/ml (5-100) CMP: (PARESH: 03/18/2017 08:19) ( MsgRcvd 03/18/2017 08:54) Final results Test Result Flag Units (Reference) GLUCOSE 113 H mg/dL (70-110) BUN 13 mg/dL (7-18) CREATININE 0.7 mg/dL (0.6-1.3) Estimated GFR >60 mL/min Estimated GFR- >60 mL/min Note: Persistent reduction over 3 months in eGFR<60 mL/min/1.73 m2 defines CKD. Patients with eGFR values>=60 mL/min/1.73 m2 may also have CKD if evidence ofpersistent proteinuria. Additional information may be foundat www.kidney.org. SODIUM 142 mmol/L (136-145) POTASSIUM 4.2 mmol/L (3.5-5.1) CHLORIDE 106 mmol/L (98-107) CARBON DIOXIDE 29 mmol/L (21-32) CALCIUM 8.8 mg/dL (8.5-10.1) TOTAL PROTEIN 6.5 g/dL (6.4-8.2) ALBUMIN 3.6 g/dL (3.3-5.0) BILIRUBIN, TOTAL 0.2 mg/dL (0.0-1.0) ALKALINE PHOSPHATASE 435 H U/L (46-116) AST (SGOT) 19 U/L (15-37) ALT (SGPT) 33 U/L (12-78) LIPASE 192 U/L (73-393) AMYLASE 30 U/L (25-115) CPK 36 U/L (24-260) TROPONIN I <0.05 L ng/mL (0.00-1.5) TROPONIN REFERENCE RANGE:<0.1 NEGATIVE0.1-1.5 INDETERMINANT>1.5 POSITIVE . PROGRESS AND PROCEDURES Course of Care: IV NS Zofran 4 mg IV 12:56 03/18/17. Pt observed to see if what appears to be intoxication, wears off with time. Pt still has dysarthria and wants to go home. She states she hits the help button several times and no one has come in. I checked with the [facility] and she notes only 1 call from that room and the [facility] responded by going in and taking the patient to the [facility]. Pt states she wants to go home and take her medications. I spoke with the Son Yash, and he states he gives her meds as written on the bottles but she is groggy all the time. He is not sure if she is taking more herself, when he is at work. Pt appears to need a drug holiday. Willm discuss with Dr. Mariano. Pt pulled her IV out . 13:21 03/18/17. Discussed with Dr Mariano and he will fax over a new medication regime to go home with today. 14:24 03/18/17. Pt eloped before Dr Mariano could get new medication schedule faxed to us. I was able to catch her and the Son in the parking lot and give him instructions on the medication changes. Pt will stop alprazolam, reduce clonazepam and vicodin. The Son will lock up bottles so she cannot get more when he is at work. She has an appointment with Dr Mariano in 4 days on Saturday. Patient/family counseled. Disposition: Discharged. Condition: stable and improved. CLINICAL IMPRESSION Acute norovirus gastroenteritis. Acute urinary tract infection with cystitis. Iatrogenic drug overdose with sedative medications. INSTRUCTIONS (Keep all medications away from patient to avoid mistakenly taking them. Follow new medication regime outlines by Dr Mariano.). Warnings: Further evaluation is necessary. GENERAL WARNINGS: Return or contact your physician immediately if your condition worsens or changes unexpectedly, if not improving as expected, or if other problems arise. Prescription Medications: Zofran (orally disintegrating tablets) 4 mg: take 1 orally every 6 hours as needed for nausea. Dispense ten (10). No refill. Macrobid 100 mg: take 1 capsule orally every 12 hours for 3 days. No refill. Substitution is permissible. Understanding of the discharge instructions verbalized by patient and family. Discharge instructions reviewed (Son, Yash). Follow-up with: Yash Mariano MD, Family Practice, , [facility], [address] [address] [place] [address], [facility] Follow up in three days. Call for an appointment. (Electronically signed by Bright Rojas MD 03/19/2017 21:22)
--- NOTE | 2017-03-19 21:22 | ED MED RECONCILIATION SUMMARY ---
Patient: SHAYNE LOOMIS Medication Reconciliation Report [facility] VisitID: [id number] [address] [place] [address] 72y, F Registration Date/Time: 03/18/2017 Weight: 58.9 kg Height/Length: 68 in. BMI: 19.7 ALLERGIES: NKDA The patient's Home Medications are listed below: THE FOLLOWING MEDICATIONS NEED TO BE RECONCILED: Alprazolam 1 mg, 4x a day, 1 tab every 4 hours PRN Atenolol Oral ClonazePAM Oral Desvenlafaxine Succinate Oral Dexilant Oral Gabapentin Oral (300 mg) 1 capsule HydrOXYzine HCl Oral Losartan Potassium Oral Vicodin Oral 7.5 mg The source(s) of the original Home Medication information: patient The following Medications were given to the patient in the Emergency Department: IV NS IV Fluids bolus 0, then 150 mL/hr, administered: 03/18/2017 8:41:00 AM Zofran [IVP] IVP 4 mg, administered: 03/18/2017 9:26:00 AM The following Medications were prescribed to the patient: Zofran (orally disintegrating tablets) 4 mg: take 1 orally every 6 hours as needed for nausea. Dispense ten (10). No refill. -- Bright Rojas MD Macrobid 100 mg: take 1 capsule orally every 12 hours for 3 days. No refill. Substitution is permissible. -- Bright Rojas MD
--- NOTE | 2017-03-19 21:22 | ED MAR SUMMARY ---
..... Medication Administration Record [facility] [address] [place] [address] Patient: SHAYNE LOOMIS Visit ID: [id number] 72y, F Weight: 58.9 kg Height/Length: 68 in BMI: 19.7 ALLERGIES: NKDA Start 08:41 03/18/2017 Nanette Hodges R.N. Medication Administered: IV NS (SALINE), Dose: IV Fluids over 4 hour(s), Rate: 150 mL/hr, Dispensed: 1000 mL bag, Site: #1 right AC. Medication Ordered: IV NS : initial bolus none -, then 150 mL/hr for 4h (NOW); Urgent. Given 09:26 03/18/2017 Nanette Hodges R.N. Medication Administered: ZOFRAN [IVP] (ONDANSETRON HCL), Dose: 4 mg IVP over 1 minute(s), Site: #1 right AC. Medication Ordered: Zofran IV 4 mg (NOW).
--- NOTE | 2017-03-19 21:22 | ED DISCHARGE INSTRUCTIONS ---
Patient: SHAYNE LOOMIS General Instructions [facility] VisitID: [id number] [place] [address] 72y, F Registration Date/Time: 03/18/2017 Acute norovirus gastroenteritis. Acute urinary tract infection with cystitis. Iatrogenic drug overdose with sedative medications. INSTRUCTIONS (Keep all medications away from patient to avoid mistakenly taking them. Follow new medication regime outlines by Dr Mariano.). Warnings: Further evaluation is necessary. GENERAL WARNINGS: Return or contact your physician immediately if your condition worsens or changes unexpectedly, if not improving as expected, or if other problems arise. Prescription Medications: Zofran (orally disintegrating tablets) 4 mg: take 1 orally every 6 hours as needed for nausea. Dispense ten (10). No refill. Macrobid 100 mg: take 1 capsule orally every 12 hours for 3 days. No refill. Substitution is permissible. Understanding of the discharge instructions verbalized by patient and family. Discharge instructions reviewed (Son, Yash). Follow-up with: Yash Mariano MD, [facility], , [facility], [address] [address] Follow up in three days. Call for an appointment. ADDITIONAL INFORMATION Viral Gastroenteritis (6Yr-Adult) Gastroenteritis is another name for thestomach flu.It is most often caused by a virus that affects the stomach and intestinal tract. Symptoms include stomach cramping and fever, vomiting and/or diarrhea, and can last from 2 to 7 days. The danger from repeated vomiting or diarrhea is dehydration. This is the loss of too much water and minerals from the body. When this occurs, body fluids must be replaced. Antibiotics are not effective for this illness, but simple home treatment will be helpful. Home Care If symptoms are severe, rest at home for the next 24 hours. Avoid tobacco, caffeine, and alcohol use, which can worsen symptoms. Acetaminophen (Tylenol) or ibuprofen (Motrin, Advil) may be usedfor fever or pain unless another medication was prescribed. NOTE: If you have chronic liver or kidney disease or ever had a stomach ulcer or GI bleeding, talk with your doctor before using these medicines. Aspirin should never be used in anyone under 18 years of age who is ill with a fever. It may cause severe liver damage. If medicines for diarrhea or vomiting were prescribed, be sure they are takenonly as directed. If vomiting, drink small amounts of clear fluids (such as water, sports drinks, clear sodas) at frequent intervals to prevent dehydration. Start with 1 to 2 tablespoons every 10 minutes. Once vomiting stops, follow these guidelines: During The First 12 To 24 Hours follow the diet below: Beverages: Sport drinks like Gatorade, soft drinks without caffeine; kirsty jayna, mineral water (plain or flavored), decaffeinated tea and coffee. Soups: Clear broth, consomm and bouillon Desserts: Plain gelatin (Jell-O), Popsicles and fruit juice bars. During The Next 24 Hours you may add the following to the above: Hot cereal, plain toast, bread, rolls, crackers Plain noodles, rice, mashed potatoes, chicken noodle or rice soup Unsweetened canned fruit (avoid pineapple), bananas Limit fat intake to less than 15 grams per day by avoiding margarine, butter, oils, mayonnaise, sauces, gravies, fried foods, peanut butter, meat, poultry, and fish. Limit fiber; avoid raw or cooked vegetables, fresh fruits (except bananas), and bran cereals. Limit caffeine and chocolate. Do not use spices or seasonings except salt. During The Next 24 Hours The patient can gradually resume a normal diet as symptoms lessen. Preventing Spread Hand washing with soap and water is the best way to prevent the spread of viruses. Caregivers should wash their hands before andafter touching the sick person. The sick person, as well as everyone in the family,should wash their hands after using the toilet and before meals. Clean the toilet after each use. People with diarrhea should not prepare food for others. If you are preparing your own foods, wash your hands before and after. Follow Up with your doctor as advised. Call your doctor if you are not improving over the next 2 to 3 days. If a stool (diarrhea) sample was taken, you may call in 2 days (or as directed) for the results. Get Prompt Medical Attention if any of the following occur: Increasing abdominal pain Continued vomiting (unable to keep liquids down) Frequent diarrhea (more than 5 times a day) Blood in vomit or stool (black or red color) Dark urine, reduced urine output, or extreme thirst Weakness, dizziness, fainting Drowsiness, confusion, stiff neck, or seizure Fever of 100.4F (38C) oral or higher, not better with fever medication New rash Bladder Infection,Female (Adult) A bladder infection ("cystitis" or "UTI") usually causes a constant urge to urinate and a burning when passing urine. Urine may be cloudy, smelly or dark. There may be pain in the lower abdomen. A bladder infection occurs when bacteria from the vaginal area enter the bladder opening (urethra). This can occur from sexual intercourse, wearing tight clothing, dehydration and other factors. Home Care: Drink lots of fluids (at least 6-8 glasses a day, unless you must restrict fluids for other medical reasons). This will force the medicine into your urinary system and flush the bacteria out of your body. Avoid sexual intercourse until your symptoms are gone. Avoid caffeine, alcohol and spicy foods. These can irritate the bladder. A bladder infection is treated with antibiotics. You may also be given Pyridium (generic = phenazopyridine) to reduce the burning sensation. This medicine will cause your urine to become a bright orange color. The orange urine may stain clothing. You may wear a pad or panty-liner to protect clothing. Preventing Future Infections: Always wipe from front to back after a bowel movement. Keep the genital area clean and dry. Drink plenty of fluids each day to avoid dehydration. Both sexual partners should wash before intercourse. Urinate right after intercourse to flush out the bladder. Wear cotton underwear and cotton-lined panty hose; avoid tight-fitting pants. If you are on control pills and are having frequent bladder infections, discuss with your doctor. Follow Up: Return to this facility or see your doctor if ALL symptoms are not gone after three days of treatment. Get Prompt Medical Attention if any of the following occur: Fever of 100.4F (38C) or higher, or as directed by your healthcare provider No improvement by the third day of treatment Increasing back or abdominal pain Repeated vomiting; unable to keep medicine down Weakness, dizziness or fainting Vaginal discharge Pain, redness or swelling in the labia (outer vaginal area) Ondansetron Oral disintegrating tablet What is this medicine? ONDANSETRON (on BRAIN se gwendolyn) is used to treat nausea and vomiting caused by chemotherapy. It is also used to prevent or treat nausea and vomiting after surgery. How should I use this medicine? These tablets are made to dissolve in the mouth. Do not try to push the tablet through the foil backing. With dry hands, peel away the foil backing and gently remove the tablet. Place the tablet in the mouth and allow it to dissolve, then swallow. While you may take these tablets with water, it is not necessary to do so. Talk to your data technician regarding the use of this medicine in children. Special care may be needed. What side effects may I notice from receiving this medicine? Side effects that you should report to your doctor or health career transition specialist as soon as possible: allergic reactions like skin rash, itching or hives, swelling of the face, lips, or tongue breathing problems dizziness fast or irregular heartbeat feeling faint or lightheaded, falls fever and chills swelling of the hands and feet tightness in the chest Side effects that usually do not require medical attention (report to your doctor or health career transition specialist if they continue or are bothersome): constipation or diarrhea headache What may interact with this medicine? Do not take this medicine with any of the following medications: -apomorphine -cisapride -dofetilide -dronedarone -pimozide -thioridazine -ziprasidone This medicine may also interact with the following medications: -carbamazepine -phenytoin -rifampicin -tramadol -other medicines that prolong the QT interval (cause an abnormal heart rhythm) What if I miss a dose? If you miss a dose, take it as soon as you can. If it is almost time for your next dose, take only that dose. Do not take double or extra doses. Where should I keep my medicine? Keep out of the reach of children. Store between 2 and 30 degrees C (36 and 86 degrees F). Throw away any unused medicine after the expiration date. What should I tell my health care provider before I take this medicine? They need to know if you have any of these conditions: heart disease history of irregular heartbeat liver disease low levels of magnesium or potassium in the blood an unusual or allergic reaction to ondansetron, granisetron, other medicines, foods, dyes, or preservatives or trying to get breast-feeding What should I watch for while using this medicine? Check with your doctor or health career transition specialist as soon as you can if you have any sign of an allergic reaction. Nitrofurantoin, Nitrofurantoin, Macrocrystalline Oral capsule What is this medicine? NITROFURANTOIN (kem woodn) is an antibiotic. It is used to treat urinary tract infections. How should I use this medicine? Take this medicine by mouth with a glass of water. Follow the directions on the prescription label. Take this medicine with food or milk. Take your doses at regular intervals. Do not take your medicine more often than directed. Do not stop taking except on your doctor's advice. Talk to your data technician regarding the use of this medicine in children. While this drug may be prescribed for selected conditions, precautions do apply. What side effects may I notice from receiving this medicine? Side effects that you should report to your doctor or health career transition specialist as soon as possible: allergic reactions like skin rash or hives, swelling of the face, lips, or tongue chest pain cough difficulty breathing dizziness, drowsiness fever or infection joint aches or pains pale or blue-tinted skin redness, blistering, peeling or loosening of the skin, including inside the mouth tingling, burning, pain, or numbness in hands or feet unusual bleeding or bruising unusually weak or tired yellowing of eyes or skin Side effects that usually do not require medical attention (report to your doctor or health career transition specialist if they continue or are bothersome): dark urine diarrhea headache loss of appetite nausea or vomiting temporary hair loss What may interact with this medicine? antacids containing magnesium trisilicate probenecid quinolone antibiotics like ciprofloxacin, lomefloxacin, norfloxacin and ofloxacin sulfinpyrazone What if I miss a dose? If you miss a dose, take it as soon as you can. If it is almost time for your next dose, take only that dose. Do not take double or extra doses. Where should I keep my medicine? Keep out of the reach of children. Store at room temperature between 15 and 30 degrees C (59 and 86 degrees F). Protect from light. Throw away any unused medicine after the expiration date. What should I tell my health care provider before I take this medicine? They need to know if you have any of these conditions: anemia diabetes [id number] dehydrogenase deficiency kidney disease liver disease lung disease other chronic illness an unusual or allergic reaction to nitrofurantoin, other antibiotics, other medicines, foods, dyes or preservatives or trying to get breast-feeding What should I watch for while using this medicine? Tell your doctor or health career transition specialist if your symptoms do not improve or if you get new symptoms. Drink several glasses of water a day. If you are taking this medicine for a long time, visit your doctor for regular checks on your progress. If you are diabetic, you may get a false positive result for sugar in your urine with certain brands of urine tests. Check with your doctor. You have been given the following additional information: Gastroenteritis, Viral (6Y-Adult) Bladder Infection, Female (Adult) Ondansetron Oral disintegrating tablet Nitrofurantoin, Nitrofurantoin, Macrocrystalline Oral capsule (Electronically signed by Bright Rojas MD 03/19/2017 21:22)
--- NOTE | 2017-03-19 21:22 | ED MED RECONCILIATION SUMMARY ---
Patient: SHAYNE LOOMIS Medication Reconciliation Report [facility] VisitID: [id number] [address] [place] [address] 72y, F Registration Date/Time: 03/18/2017 Weight: 58.9 kg Height/Length: 68 in. BMI: 19.7 ALLERGIES: NKDA The patient's Home Medications are listed below: THE FOLLOWING MEDICATIONS NEED TO BE RECONCILED: Alprazolam 1 mg, 4x a day, 1 tab every 4 hours PRN Atenolol Oral ClonazePAM Oral Desvenlafaxine Succinate Oral Dexilant Oral Gabapentin Oral (300 mg) 1 capsule HydrOXYzine HCl Oral Losartan Potassium Oral Vicodin Oral 7.5 mg The source(s) of the original Home Medication information: patient The following Medications were given to the patient in the Emergency Department: IV NS IV Fluids bolus 0, then 150 mL/hr, administered: 03/18/2017 8:41:00 AM Zofran [IVP] IVP 4 mg, administered: 03/18/2017 9:26:00 AM The following Medications were prescribed to the patient: Zofran (orally disintegrating tablets) 4 mg: take 1 orally every 6 hours as needed for nausea. Dispense ten (10). No refill. -- Bright Rojas MD Macrobid 100 mg: take 1 capsule orally every 12 hours for 3 days. No refill. Substitution is permissible. -- Bright Rojas MD
--- NOTE | 2017-03-19 21:22 | ED MAR SUMMARY ---
..... Medication Administration Record [facility] [address] [place] [address] Patient: SHAYNE LOOMIS Visit ID: [id number] 72y, F Weight: 58.9 kg Height/Length: 68 in BMI: 19.7 ALLERGIES: NKDA Start 08:41 03/18/2017 Nanette Hodges R.N. Medication Administered: IV NS (SALINE), Dose: IV Fluids over 4 hour(s), Rate: 150 mL/hr, Dispensed: 1000 mL bag, Site: #1 right AC. Medication Ordered: IV NS : initial bolus none -, then 150 mL/hr for 4h (NOW); Urgent. Given 09:26 03/18/2017 Nanette Hodges R.N. Medication Administered: ZOFRAN [IVP] (ONDANSETRON HCL), Dose: 4 mg IVP over 1 minute(s), Site: #1 right AC. Medication Ordered: Zofran IV 4 mg (NOW).
== END 2017-03-18 14:30 | disposition home or self-care (01) ==
LOC: ED SRH 07:52
DX: T42.71XA Poisoning by unspecified antiepileptic and sedative-hypnotic drugs, accidental (unintentional), initial encounter (principal); A08.11 Acute gastroenteropathy due to Norwalk agent; N30.00 Acute cystitis without hematuria; E03.9 Hypothyroidism, unspecified; K21.9 Gastro-esophageal reflux disease without esophagitis; Z79.899 Other long term (current) drug therapy; Y99.9 Unspecified external cause status
CPT/HCPCS: 90004; 90100; 90455; 90469; 90616; 91320; 92235; 92530; 92610; 92760; 92761; 92762; 92763; 92764; 92765; 92766; 92767; 95059